=== PATIENT | male | born 1970 | race African-American/Black ===

== ENCOUNTER 2019-06-08 12:10 | Emergency (ER) | payer MEDICAID ==
[~2019-06-08] VITALS: Ht 185.4 cm; Wt 170.0 kg
[2019-06-08 14:24] LABS: CLARITY URINE CLEAR (CLEAR); COLOR URINE YELLOW (YELLOW); KETONES URINE NEGATIVE (NEGATIVE); LEUKOCYTE ESTERASE URINE NEGATIVE (NEGATIVE); NITRITE URINE NEGATIVE (NEGATIVE); OCCULT BLOOD URINE NEGATIVE (NEGATIVE); PROTEIN URINE NEGATIVE (NEGATIVE); SPECIFIC GRAVITY URINE 1.015 (1.005-1.030); UROBILINOGEN URINE 0.2 E.U./dL (0.2-1.0)
[2019-06-08 14:52] LABS: BASOPHILS % 0.4 % (0.0-2.0); EOSINOPHILS % 2.1 % (0.0-5.0); LYMPHOCYTES % 24.3 % (20.0-50.0); MEAN CORPUSCULAR HEMOGLOBIN 26.9 pg (28.0-32.0); MEAN CORPUSCULAR VOLUME 82.8 fL (80.0-94.0); MEAN PLATELET VOLUME 8.3 fl (7.4-10.4); MONOCYTES % 6.7 % (2.0-8.0); NEUTROPHILS % 66.5 % (40.0-76.0); PLATELET 226 x1000/uL (130-400); RED BLOOD CELL COUNT 5.19 mill/uL (4.7-6.1); RED CELL DISTRIBUTION WIDTH 16.6 % (11.6-14.6)
[2019-06-08 14:58] LABS: CHLORIDE 103 mEq/L (98-107)
[2019-06-08 16:30] VITALS: BP 140/90
== END 2019-06-08 16:30 | disposition home or self-care (01) ==
LOC: ER 12:10
DX: N20.0 Calculus of kidney (principal); K57.90 Diverticulosis of intestine, part unspecified, without perforation or abscess without bleeding; F17.210 Nicotine dependence, cigarettes, uncomplicated; Z71.6 Tobacco abuse counseling
CPT/HCPCS: 36415; 74176; 81003; 99284; 99406

== ENCOUNTER 2019-07-03 11:44 | Emergency (ER) | payer MEDICAID ==
[~2019-07-03] VITALS: Ht 185.4 cm; Wt 158.0 kg
[2019-07-03] MEDS ORDERED: UNKNOWN BP MEDS (13:22)
[2019-07-03] MEDS ORDERED: MORPHINE SULFATE 4 MG/ML CPJ (NOT FOR IM USE) IV STA (19:16)
[2019-07-03] MEDS ORDERED: ONDANSETRON HCL 4MG/2ML INJ IV STA (19:16)
[2019-07-03] MEDS ORDERED: SODIUM CHLORIDE 0.9% 1,000 ML IV ONE (19:16)
[2019-07-03 19:54] LABS: BASOPHILS % 0.7 % (0.0-2.0); EOSINOPHILS % 5.2 % (0.0-5.0); HEMATOCRIT. 43.3 % (42.0-52.0); HEMOGLOBIN. 14.4 g/dL (14.0-18.0); MEAN CORPUSCULAR HEMOGLOBIN 27.5 pg (28.0-32.0); MEAN CORPUSCULAR VOLUME 82.9 fL (80.0-94.0); MEAN PLATELET VOLUME 8.5 fl (7.4-10.4); MONOCYTES % 11.3 % (2.0-8.0); NEUTROPHILS % 57.8 % (40.0-76.0); PLATELET 188 x1000/uL (130-400); RED BLOOD CELL COUNT 5.23 mill/uL (4.7-6.1); RED CELL DISTRIBUTION WIDTH 17.8 % (11.6-14.6)
[2019-07-03 20:01] LABS: CHLORIDE 107 mEq/L (98-107); CLARITY URINE CLEAR (CLEAR); COLOR URINE YELLOW (YELLOW); INR 1.1; KETONES URINE TRACE (NEGATIVE); LEUKOCYTE ESTERASE URINE NEGATIVE (NEGATIVE); NITRITE URINE NEGATIVE (NEGATIVE); OCCULT BLOOD URINE NEGATIVE (NEGATIVE); PROTEIN URINE TRACE (NEGATIVE); PROTHROMBIN TIME 10.9 sec (9.6-11.0); SPECIFIC GRAVITY URINE 1.022 (1.005-1.030)
[2019-07-04] MEDS ORDERED: ACETAMINOPHEN 650MG/20.3ML UDC PO ONE
[2019-07-04 00:13] VITALS: BP 142/88
== END 2019-07-04 00:15 | disposition home or self-care (01) ==
LOC: ER 11:44
DX: K42.0 Umbilical hernia with obstruction, without gangrene (principal); K57.30 Diverticulosis of large intestine without perforation or abscess without bleeding; N20.0 Calculus of kidney; I10 Essential (primary) hypertension; F17.210 Nicotine dependence, cigarettes, uncomplicated; Z71.6 Tobacco abuse counseling; Z87.442 Personal history of urinary calculi
CPT/HCPCS: 36415; 74176; 80053; 81003; 83690; 85025; 85610; 96374; 96375; 99284; 99406; J2270; J2405; J7030; Z7610

== ENCOUNTER 2020-01-30 11:39 | Inpatient (IN) | payer MEDICAID ==
[~2020-01-30] VITALS: Ht 188 cm; Wt 161.0 kg
[~2020-01-30 11:39] MED LIST: UNKNOWN BP MEDS
[2020-01-30] MEDS ORDERED: ASPIRIN 81MG TABLET PO ONE (13:45)
[2020-01-30] MEDS ORDERED: FUROSEMIDE 40MG/4ML VIAL IV ONE (13:45)
[2020-01-30] MEDS ORDERED: NITROGLYCERIN OINT 1GM/INCH UDPKT TD ONE (13:45)
[2020-01-30 14:51] LABS: BASOPHILS % 0.5 % (0.0-2.0); EOSINOPHILS % 2.3 % (0.0-5.0); HEMATOCRIT. 41.6 % (42.0-52.0); HEMOGLOBIN. 13.4 g/dL (14.0-18.0); LYMPHOCYTES % 22.2 % (20.0-50.0); MEAN CORPUSCULAR HEMOGLOBIN 27.4 pg (28.0-32.0); MEAN CORPUSCULAR VOLUME 84.7 fL (80.0-94.0); PLATELET 222 x1000/uL (130-400); RED BLOOD CELL COUNT 4.91 mill/uL (4.7-6.1); RED CELL DISTRIBUTION WIDTH 17.9 % (11.6-14.6)
[2020-01-30 14:58] LABS: CHLORIDE 103 mEq/L (98-107)
[2020-01-30 15:01] LABS: PARTIAL THROMBOPLASTIN TIME 25.4 sec (23.4-31.0); PROTHROMBIN TIME 10.7 sec (9.6-11.0)
[2020-01-30] MEDS ORDERED: POTASSIUM CHLORIDE 20MEQ TABLET SR PO ONE (15:15)
[2020-01-30] MEDS ORDERED: ENOXAPARIN 150MG/ML SYR SUBCUT ONE (15:45)
[2020-01-30] MEDS ORDERED: ACETAMINOPHEN 325MG TABLET PO PRN (16:45)
[2020-01-30] MEDS ORDERED: ONDANSETRON HCL 4MG/2ML INJ IV PRN (16:45)
[2020-01-30] MEDS: AMLODIPINE 5MG TABLET PO SCH (21:58)
[2020-01-30 22:00] VITALS: BP 137/77
[2020-01-30 22:23] VITALS: BP 137/77
[2020-01-31] VITALS (7 sets, daily range): BP systolic 111–189; BP diastolic 38–90
[2020-01-31] MEDS: POTASSIUM CHLORIDE 20MEQ TABLET SR PO SCH (08:22)
[2020-01-31] MEDS: ENOXAPARIN 40MG/0.4ML SYR SUBCUT SCH ×2 (08:23→20:29)
[2020-01-31] MEDS: FUROSEMIDE 40MG/4ML VIAL IVP SCH (08:23)
[2020-01-31] MEDS: AMLODIPINE 5MG TABLET PO SCH ×2 (08:23→20:29)
[2020-01-31 10:41] LABS: *AMPHETAMINES SCREEN URINE NEGATIVE (NEGATIVE); *BARBITURATES SCREEN URINE NEGATIVE (NEGATIVE); *BENZODIAZEPINES SCREEN URINE NEGATIVE (NEGATIVE); *COCAINE SCREEN URINE PRESUMTIVE POSITIVE (NEGATIVE); METHADONE URINE SCREEN NEGATIVE (NEGATIVE); OPIATES URINE SCREEN NEGATIVE (NEGATIVE)
[2020-01-31 10:42] LABS: PHENCYCLIDINE URINE SCREEN NEGATIVE (NEGATIVE)
[2020-01-31 10:44] LABS: CANNABINOID URINE SCREEN NEGATIVE (NEGATIVE)
[2020-01-31] MEDS ORDERED: INFLUENZA VIRUS VACCINE(AFLURIA) 0.5ML SYR IM ONE (12:00)
[2020-01-31] MEDS ORDERED: PNEUMOCOCCAL 23-VAL P-SAC VAC 0.5 ML IM ONE (12:00)
[2020-01-31] MEDS ORDERED: FUROSEMIDE 40MG/4ML VIAL IVP NR (16:00)
[2020-01-31] MEDS: METFORMIN HCL 500MG TABLET PO SCH (17:02)
[2020-02-01] VITALS (9 sets, daily range): BP systolic 110–140; BP diastolic 53–88
[2020-02-01] MEDS: METFORMIN HCL 500MG TABLET PO SCH (08:24)
[2020-02-01] MEDS: POTASSIUM CHLORIDE 20MEQ TABLET SR PO SCH (08:24)
[2020-02-01] MEDS: FUROSEMIDE 40MG/4ML VIAL IVP SCH (08:25)
[2020-02-01] MEDS: AMLODIPINE 5MG TABLET PO SCH (08:25)
[2020-02-01] MEDS: ENOXAPARIN 40MG/0.4ML SYR SUBCUT SCH (08:25)
[2020-02-01] MEDS ORDERED: FURO-151 MT (12:43)
[2020-02-01] MEDS ORDERED: CARV12.545 MT (12:43)
[2020-02-01] MEDS ORDERED: POTA20TA82 MT (12:43)
[2020-02-01] MEDS ORDERED: LOSA25TA26 MT (12:43)
[2020-02-01] MEDS ORDERED: METF-414 MT (12:43)
[2020-02-01] MEDS ORDERED: CARVEDILOL 6.25 MG TABLET PO SCH (13:15)
[2020-02-01] MEDS ORDERED: LISINOPRIL 10MG TABLET PO SCH (13:15)
[2020-02-01 14:54] LABS: BG BASE EXCESS 3.1 mmol/L (-2.0-2.0); BG CARBOXYHEMOGLOBIN 0.6 % (0.5-1.5); BG DEOXYHEMOGLOBIN 6.7 % (0.0-5.0); BG FRACTION INSPIRED OXYGEN 21; BG HCO3 ACT 28.2 mmol/L (22.0-26.0); BG METHEMOGLOBIN 0.1 % (0.0-1.5); BG OXYGEN SATURATION 93.3 % (92.0-98.5); BG OXYHEMOGLOBIN 92.6 % (94.0-97.0); BG PCO2 44.8 mmHg (35.0-45.0); BG PH 7.417 (7.350-7.450); BG PO2 65.7 mmHg (75.0-100.0); BG SAMPLE SITE RIGHT RADIAL; BG TOTAL HEMOGLOBIN 14.3 g/dL (12.0-18.0); BG VENT MODE ROOM AIR
[2020-02-01] MEDS ORDERED: FUROSEMIDE 40MG/4ML VIAL IVP SCH (17:15)
[2020-02-01] MEDS ORDERED: LISINOPRIL 5MG TABLET PO SCH (21:00)
== END 2020-02-01 18:05 | disposition home or self-care (01) | DRG 194 ==
LOC: ER 11:39 → 5EST 15:35 → ENRESERV 19:42
PROVIDERS: ADMIT Internal Medicine; ATTEND Internal Medicine
DX: I11.0 Hypertensive heart disease with heart failure (principal); E44.1 Mild protein-calorie malnutrition; I42.9 Cardiomyopathy, unspecified; E11.9 Type 2 diabetes mellitus without complications; E66.9 Obesity, unspecified; E87.6 Hypokalemia; I50.43 Acute on chronic combined systolic (congestive) and diastolic (congestive) heart failure; F14.90 Cocaine use, unspecified, uncomplicated; F17.210 Nicotine dependence, cigarettes, uncomplicated; J44.9 Chronic obstructive pulmonary disease, unspecified; Z96.659 Presence of unspecified artificial knee joint; Z60.2 Problems related to living alone; Z71.3 Dietary counseling and surveillance; Z71.6 Tobacco abuse counseling; Z68.42 Body mass index [BMI] 45.0-49.9, adult
CPT/HCPCS: 36415; 36600; 71045; 80048; 80053; 80061; 80305; 82375; 82805; 82962; 83036; 83880; 84443; 84484; 85025; 90686; 90732; 93005; 93306; 94660; 96374; 99291; J1650; J1940